=== PATIENT | female | born 1950 | race Caucasian/White ===

== ENCOUNTER 2019-07-21 09:15 | Emergency (ER) | payer OTHER ==
[~2019-07-21] VITALS: Ht 162.6 cm; Wt 53.1 kg
[~2019-07-21 09:15] MED LIST: DEXILANT60 MG; NEURONTIN 300M300 M2; PROTONIX40 MG PO; SIMVASTATIN80 MG
[2019-07-21] MEDS ORDERED: ASA81BEC PO (09:25)
[2019-07-21] MEDS ORDERED: TRAZODONE HCL50 MG PO (09:25)
[2019-07-21] MEDS ORDERED: ZETIA10 MG PO (09:25)
[2019-07-21] MEDS ORDERED: CILOSTAZOL 100100 MG PO (09:25)
[2019-07-21] MEDS ORDERED: CRESTOR10 MG PO (09:25)
[2019-07-21] MEDS ORDERED: FISH OIL 1,0001 EAC9 PO (09:26)
[2019-07-21] MEDS ORDERED: NORCO 5-325 TA1 EAC1 PO (09:42)
[2019-07-21] MEDS ORDERED: PREDNISONE 20 M20 M1 PO (09:42)
[2019-07-21 10:52] VITALS: BP 128/68
== END 2019-07-21 10:52 | disposition home or self-care (01) ==
LOC: M.ERS 09:15
DX: M54.32 Sciatica, left side (principal); Z90.49 Acquired absence of other specified parts of digestive tract; Z88.5 Allergy status to narcotic agent